=== PATIENT | female | born 1955 | race Caucasian/White ===

== ENCOUNTER 2016-10-19 01:27 | Emergency (ER) | payer OTHER ==
[~2016-10-19] VITALS: Ht 165.1 cm; Wt 79.5 kg
[~2016-10-19 01:27] MED LIST: ASPI-973 PO; CALC-72 PO; CHOL10008 PO; CYAN1TAB19 PO; ESTR2TAB2 PO; IBUP200C PO; LISI1TAB7 PO; LOVA40TA PO; PANT40TA2 PO; PROG100C3 PO
[2016-10-19 01:42] VITALS: BP 135/88; PULSE 70; RESP 18; O2SAT 98
--- NOTE | 2016-10-19 01:43 | ED.REPORT ---
HPI-General Illness Date of Service Oct 19, 2016 ED Provider: Dr. Pandya Pt is a 61 year old female presenting to the ED complaining of dizziness onset tonight while sleeping. She reports that she was woken up by the dizziness, which felt like the room was spinning. She denies lightheadedness or any other symptoms at this time. Nursing Notes Stated Complaint: DIZZY Chief Complaint: General Complaint Nursing Notes Reviewed: Yes Allergies: Coded Allergies: venlafaxine (Verified Allergy, Intermediate, 07/23/15) Penicillins (Verified Allergy, Unknown, SWELLING, 06/15/09) Scheduled Aspirin (Aspirin) 81 Mg Tablet 81 MG PO DAILY Estradiol (Estradiol) 2 Mg Tablet 2 MG PO DAILY Lisinopril / HCTZ 10-12.5 mg (Lisinopril / HCTZ 10-12.5 mg) 1 Each Tablet 1 EACH PO DAILY Lovastatin (Lovastatin) 40 Mg Tablet 40 MG PO HS Pantoprazole DR (Protonix) 40 Mg Tablet 40 MG PO DAILY Scheduled PRN Ibuprofen (Ibuprofen) 200 Mg Capsule 200 MG PO QID PRN PRN For Pain Meclizine (Bonine) 25 Mg Tab.chew 25 MG PO QID PRN PRN vertigo Miscellaneous Medications Calcium Carbonate/Vitamin D3 (Calcium 500 + Vit D 200 Tablet) 1 Each Tablet 1 EACH PO Cholecalciferol (Vitamin D3) (Vitamin D3) 1,000 Unit Tab.chew 1,000 UNIT PO Cyanocobalamin/FA/Pyridoxine (B Complex-Folic Acid Tablet) 1 Each Tablet 1 EACH PO Progesterone,Micronized (Prometrium) 100 Mg Capsule 100 MG PO General Time Seen by MD: 01:42 Chief Complaint Dizziness Hx Obtained From: Patient Arrived By: Walk-in Sudden in Onset?: Yes Onset Occurred: Just prior to arrival Symptom Duration: Since onset Severity: Current: No pain currently Severity: Maximum: No pain Recent Healthcare: No recent doctor visit, No recent hospitalization Similar Sx Previous: No Past Medical History Past Medical History Acid reflux, hormone replacement therapy, cholesterol Past Surgical History Colonoscopy Smoking History Never Smoker Ambulatory Status Independent Review of Systems Full Review of Systems Neurologic: Reports: Dizziness, Lightheaded, Denies: Headache, Numbness Complete sys rev & neg: except as marked. Physical Exam Vital Signs Vital Signs Date Time Temp Pulse Resp B/P Pulse Ox O2 Delivery O2 Flow Rate FiO2 10/19/16 01:42 36.1 70 18 135/88 98 Room Air Initial VS: Reviewed General/Constitutional: Well-developed, Well-nourished ENT: Mucous membranes moist, Conjunctiva normal, No scleral icterus Neck: Supple, Non-tender, Full range of motion Respiratory: No respiratory distress Abdomen / GI: No distention Extremities: Vascular intact, Neuro intact, No swelling, No tenderness Skin: Warm, Dry, No cyanosis Psychiatric: Mood/affect normal, Behavior normal, Normal thought content Head / Eyes: Atraumatic Eye Movement: Positive: Nystagmus present Neurologic: Oriented X3, Speech NL, No motor deficits, No sensory deficits, CN II - XII intact, Reflexes equal bilat, Cerebellar NL, Memory NL, Gait NL Re-Eval/Medical Decision Med Decision/Clinical Course 61-year-old with acute onset of BPPV. No neurological findings and no historical findings to suggest central vertigo. No indication for advanced imaging. She has elicitable nystagmus, high intensity vertigo with head movement, and a classic story. Chiara maneuvers discussed and demonstrated. Follow-up with PCP. Written materials from dizziness and balance.[employer] provided. Time of Eval: 01:53 Patient Status: Condition improved Re-Evaluation/Progress Note: Discussed plan for discharge. Pt understands and agrees. All pt questions addressed. Counseled Regarding: Diagnosis, Lab results, Need for follow-up, When/why to return to ED Discharge & Departure Primary Impression: Vertigo Additional Impression: Benign paroxysmal positional vertigo Laterality: unspecified laterality Qualified Code: H81.10 - Benign paroxysmal vertigo, unspecified ear Disposition: Home Discharge Condition All VS Reviewed: Yes Condition: Improved Patient Instructions: Vertigo (ED) Additional Instructions: When you get home, go through the Chiara maneuvers as I described. Two minutes per position. Do these in both directions. Meclizine may be used to suppress acute vertigo, but it can be sedating. Follow-up with your doctor in the office. Return if any immediate issues. Referrals: Blaine White MD (PCP) Scribe Attestation Portions of this note were transcribed by Tiffany Emanuel. I, Dr. Pandya personally performed the history, physical exam and medical decision-making; I reviewed and confirmed the accuracy of the information in the transcribed note. Signed by: Adriane Mcnulty, 10/19/2016 at 0220. copies to: Blaine White MD,Misha Madrid MD Oct 19, 2016 01:43 TIFFANY EMANUEL Oct 19, 2016 01:57
[2016-10-19] MEDS ORDERED: MECL-114 PO (02:09)
== END 2016-10-19 02:25 | disposition home or self-care (01) ==
LOC: SED 01:27
DX: H81.10 Benign paroxysmal vertigo, unspecified ear (principal); Z79.82 Long term (current) use of aspirin; Z88.0 Allergy status to penicillin; Z88.8 Allergy status to other drugs, medicaments and biological substances